=== PATIENT | female | born 1960 | race Caucasian/White ===

== ENCOUNTER 2016-10-27 22:22 | Emergency (ER) | payer BC, OTHER ==
[~2016-10-27] VITALS: Ht 165.1 cm; Wt 86.9 kg
[2016-10-27 22:31] VITALS: Ht 165.1 cm; Wt 86.9 kg
--- NOTE | 2016-10-28 01:21 | ERD ---
ER Documentation Chief Complaint Date/Time DATE: 10/28/16 TIME: 01:19 Chief Complaint left eye redness x 1 day HPI This is a 56-year-old female with a history of diabetes type 2 presenting to the emergency department complaining of left eye medial aspect erythema that started 2 days ago. Patient denies any pain, vision changes, headache or discharge. Patient states that she noticed it day and a half ago and it concerned her because is bright red. ROS All systems reviewed and are negative except as per history of present illness. Allergies Allergies: Coded Allergies: No Known Allergy (Verified , 10/27/16) Physical Exam Vitals Vital Signs Date Time Temp Pulse Resp B/P Pulse Ox O2 Delivery O2 Flow Rate FiO2 10/27/16 22:31 97.0 73 20 144/61 99 Physical Exam General: WD/WN, in no apparent distress, non-toxic appearing HENT: NC/AT EYES: Left conjunctiva normal, no icterus Right medial subconjunctival hemorrhage Pupils equal react to light bilaterally Extraocular muscles intact bilaterally NECK: Supple; no LAD PULM: Normal labored breathing CV: RRR Good capillary refill GI: Non-distended, no guarding BACK: No masses EXT: No clubbing, cyanosis, or edema NEURO: Moves on all fours SKIN: intact PSYCH: Normal mood Procedures/MDM This is a 56-year-old female with a history of diabetes type 2 presenting to the emergency department with a left subconjunctival hemorrhage. Patient did not have any headache, vision changes. I have a low suspicion for glaucoma or conjunctivitis. On examination patient appears well with stable vital signs. I discussed with patient that this will resolve. I discussed to follow-up with the primary care physician. Discussed return the ER for any worsening signs or symptoms. Patient understands and agrees with Departure Diagnosis: Primary Impression: Subconjunctival hemorrhage of left eye Condition: Stable Patient Instructions: Subconjunctival Hemorrhage Additional Instructions: Visite a raymundo milian para un EXAMEN.Regrese a estas instalaciones si no se mejora anamaria esperbamos o anamaria le dijimos. Regrese a estas instalaciones si no se mejora anamaria esperbamos o anamaria le dijimos. HILARIO CUMMINGS PA-C Oct 28, 2016 01:21
== END 2016-10-28 02:19 | disposition home or self-care (01) ==
LOC: FTE 22:22
DX: H11.32 Conjunctival hemorrhage, left eye (principal); E11.9 Type 2 diabetes mellitus without complications
CPT/HCPCS: 99282

== ENCOUNTER 2017-09-10 07:07 | Emergency (ER) | END 2017-09-10 09:20 | disposition home or self-care (01) ==